=== PATIENT | male | born 1950 | race Caucasian/White ===

== ENCOUNTER 2016-08-25 11:11 | Emergency (ER) | payer OTHER ==
[2016-08-25 11:23] VITALS: O2SAT 96
[2016-08-25] MEDS ORDERED: NS 1,000 ML IV ONE ×3 (11:48→13:15)
[2016-08-25 11:49] LABS: % IMMATURE GRANULYOCYTES 0.2 % (0.0-1.1); ABSOLUTE IMMATURE GRANULOCYTES 0.02 10^3/uL (0.00-0.10); ADD DIFF? NO; ADD MORPH? NO; ADD SCAN? NO; ATYPICAL LYMPHOCYTE FLAG 20 (0-99); FRAGMENT RBC FLAG 20 (0-99); HEMATOCRIT 34.8 % (40.0-51.0); HEMOGLOBIN 11.3 g/dL (13.7-17.5); LEFT SHIFT FLG 70 (0-99); LIPEMIA HEMOLYSIS FLAG 80 (0-99); MEAN CELL HEMOGLOBIN 28.4 pg (27.9-34.1); MEAN CELL HEMOGLOBIN CONCENTR. 32.5 g/dL (32.4-36.7); MEAN CELL VOLUME 87.4 fL (81.5-99.8); MEAN PLATELET VOLUME 11.6 fL (8.7-11.7); PLATELET CLUMPS FLAG 0 (0-99); PLATELET COUNT 189 10^3/uL (150-400); RED BLOOD CELL COUNT 3.98 10^6/uL (4.40-6.38); RED CELL DISTRIBUTION WIDTH 16.8 % (11.5-15.2)
[2016-08-25 12:06] LABS: ALBUMIN 4.4 g/dL (3.5-5.0); BILIRUBIN,TOTAL 0.7 mg/dL (0.1-1.4); BILIRUBIN-CONJUGATED 0.4 mg/dL (0.0-0.5); BILIRUBIN-UNCONJUGATED 0.3 mg/dL (0.0-1.1); CALCIUM 8.1 mg/dL (8.5-10.4); CREATININE 5.1 mg/dL (0.7-1.3); POTASSIUM 5.7 mEq/L (3.5-5.2); TOTAL PROTEIN 7.7 g/dL (6.3-8.2)
--- NOTE | 2016-08-25 12:31 | EDPHY ---
H & P Chief Complaint Nursing Narrative: abd pain cramping x 3 days and dehydrated. Hx of rectal ca Time Seen by Provider: 08/25/16 11:31 - Medical/Surgical History Hx Asthma: No Hx Chronic Respiratory Disease: No Hx Diabetes: Yes Hx Cardiac Disease: Yes Hx Renal Disease: No Hx Cirrhosis: No Hx Alcoholism: No Hx HIV/AIDS: No Hx Splenectomy or Spleen Trauma: No Other PMH: PCP Raquel cross med. dxd 2011 rectal ca. Colostomy / colon resection . DM /HTN Chol/Neuropathy. FLU . Tetanus ??? - Social History Smoking Status: Light smoker Constitutional: Initial Vital Signs Temperature (C) 36.7 C 08/25/16 11:15 Heart Rate 60 08/25/16 11:15 Respiratory Rate 16 08/25/16 11:15 Blood Pressure 111/48 L 08/25/16 11:15 O2 Sat (%) 96 08/25/16 11:15 O2 Delivery Mode Room Air Allergies/Adverse Reactions: hydrocodone bitartrate [From Vicodin] Allergy (Verified 08/25/16 11:22) latex Allergy (Verified 08/25/16 11:22) Home Medications: Medication Instructions Recorded Atorvastatin Calcium [Lipitor 40 40 mg PO HS 01/28/15 mg (*)] Losartan Potassium [Cozaar 50 mg 50 mg PO DAILY 01/28/15 (*)] Metformin HCl [Metformin 1000 mg] 1,000 mg PO BID 01/28/15 Morphine Sulfate [Morphine Sulfate 30 mg PO BID 01/28/15 ER] Venlafaxine HCl [Effexor] 200 mg PO DAILY 01/28/15 amLODIPine BESYLATE [Norvasc 10 mg 10 mg PO DAILY #30 tab 02/03/15 (*)] GABAPENTIN 08/25/16 Insulin Regular, Human 08/25/16 Medical Decision Making - Data Points Laboratory Results: Laboratory Results 08/25/16 11:42 08/25/16 11:42 08/25/16 08/25/16 11:45 11:42 WBC 8.23 10^3/uL (3.80-9.50) RBC 3.98 L 10^6/uL (4.40-6.38) Hgb 11.3 L g/dL (13.7-17.5) Hct 34.8 L % (40.0-51.0) MCV 87.4 fL (81.5-99.8) MCH 28.4 pg (27.9-34.1) MCHC 32.5 g/dL (32.4-36.7) RDW 16.8 H % (11.5-15.2) Plt Count 189 10^3/uL (150-400) MPV 11.6 fL (8.7-11.7) Neut % (Auto) 79.8 H % (39.3-74.2) Lymph % (Auto) 9.7 L % (15.0-45.0) [place] % (Auto) 9.7 % (4.5-13.0) Eos % (Auto) 0.2 L % (0.6-7.6) Baso % (Auto) 0.4 % (0.3-1.7) Nucleat RBC Rel Count 0.0 % (0.0-0.2) Absolute Neuts (auto) 6.56 H 10^3/uL (1.70-6.50) Absolute Lymphs (auto) 0.80 L 10^3/uL (1.00-3.00) Absolute Monos (auto) 0.80 10^3/uL (0.30-0.80) Absolute Eos (auto) 0.02 L 10^3/uL (0.03-0.40) Absolute Basos (auto) 0.03 10^3/uL (0.02-0.10) Absolute Nucleated RBC 0.00 10^3/uL (0-0.01) Immature Gran % 0.2 % (0.0-1.1) Immature Gran # 0.02 10^3/uL (0.00-0.10) PT 13.8 SEC (12.0-15.0) INR 1.08 (0.83-1.16) APTT 29.9 SEC (23.0-38.0) VBG Lactic Acid 2.3 H mmol/L (0.7-2.1) Sodium 136 mEq/L (134-144) Potassium 5.7 H mEq/L (3.5-5.2) Chloride 96 L mEq/L (97-110) Carbon Dioxide 20 L mEq/l (22-31) Anion Gap 20 mEq/L (8-16) BUN 84 H mg/dL (7-23) Creatinine 5.1 H mg/dL (0.7-1.3) Estimated GFR 11 Glucose 86 mg/dL (70-100) Calcium 8.1 L mg/dL (8.5-10.4) Total Bilirubin 0.7 mg/dL (0.1-1.4) Conjugated Bilirubin 0.4 mg/dL (0.0-0.5) Unconjugated Bilirubin 0.3 mg/dL (0.0-1.1) AST 24 IU/L (17-59) ALT 21 IU/L (21-72) Alkaline Phosphatase 66 IU/L (38-126) Total Protein 7.7 g/dL (6.3-8.2) Albumin 4.4 g/dL (3.5-5.0) Lipase 36.0 IU/L (23-300) Medications Given: Discontinued Medications Sodium Chloride (Ns) 1,000 mls @ 0 mls/hr IV ONCE ONE PRN Reason: Wide Open Stop: 08/25/16 11:49 Last Admin: 08/25/16 11:48 Dose: 1,000 mls Sodium Chloride (Ns) 1,000 mls @ 0 mls/hr IV ONCE ONE PRN Reason: Wide Open Stop: 08/25/16 13:16 Last Admin: 08/25/16 13:15 Dose: 1,000 mls Departure - Departure Disposition: Acute Care Hospital [facility] Clinical Impression: SBO (small bowel obstruction), Renal failure, Hyperkalemia Condition: Fair Referrals: IN STATE,. [Primary Care Provider] - As per Instructions
[2016-08-25 12:39] LABS: APTT 29.9 SEC (23.0-38.0); INR 1.08 (0.83-1.16); PROTIME(PATIENT) 13.8 SEC (12.0-15.0)
--- NOTE | 2016-08-25 13:20 | CT ---
CT Abdomen and Pelvis Without IV Contrast History: Abdominal pain and cramping and vomiting for 3 days. Dehydrated. Renal failure. History of r ectal cancer in 2011 status post partial colon resection and colostomy. Comparison: CT angiogram abdomen from January 2015. Technique: 5 mm helical images were obtained of the abdomen and pelvis from the level of the diaphrag ms through the symphysis pubis. This was done without intravenous contrast with the patient's renal f ailure. Multiplanar reformation was performed. Radiation dose reduction technique was utilized. Findings: Abdomen: Lung bases are clear. No focal liver lesion. Spleen is unremarkable. Both adrenal glands nicholas ear mildly thickened over the interval. Minimal hydronephrosis is seen in either kidney. Nonobstructi ve calculus is seen inferiorly in the left kidney. Probable renal cortical cysts are seen on the left . Pancreas is atrophic with calcifications suggesting chronic pancreatitis. No evidence for aneurysma l dilatation of the abdominal aorta where there is evidence of atherosclerotic disease. There are mul tiple dilated loops of small bowel with air-fluid levels. Pelvis: Diverticulosis is seen in the descending colon. Colostomy is seen at the left lower quadrant. Circumferential wall thickening is seen in the rectum. Soft tissue mass is seen anterior to the sacr um measuring 9 cm in width x 4.2 cm anterior to posterior. Both distal ureters are near the anterior margin of this presacral mass and the presacral mass extends to the posterior aspect of the bladder. No evidence for aggressive bone lesion. Degenerative disk and degenerative joint disease is seen in t he lower lumbar spine. Degenerative change is seen in both hips. Impression: 1. Distal partial small bowel obstruction. 2. Presacral soft tissue mass probably representing metastatic disease from the patient's history giv en of rectal cancer. Circumferential wall thickening in the rectum. Postsurgical changes of partial c olon resection and colostomy. Diverticulosis. 3. Thickening of both adrenal glands suggesting hyperplasia. 4. Chronic pancreatitis. 5. Other chronic findings as above. Results called to Clayton Mendez PA-C.
--- NOTE | 2016-08-25 15:26 | UCPHY ---
H & P Patient Type: New Chief Complaint Nursing Narrative: abd pain cramping x 3 days and dehydrated. Hx of rectal ca Time Seen by Provider: 08/25/16 11:31 HPI/ROS: Chief complaint: Abdominal pain History of present illness: This is a 66-year-old male with a history of insulin-dependent diabetes and rectal cancer with a diverting colostomy who presents to the clinic for evaluation of abdominal pain. Patient reports the onset of symptoms approximately 3 days ago. He describes a cramping pain. He has had associated nausea and vomiting. He also reports a decrease in urine output. He denies precipitating factors. He denies alleviating factors. He denies other associated signs or symptoms including no fevers. Review of systems: A 10 point review of systems was obtained and other than described above was negative - Medical/Surgical History Hx Asthma: No Hx Chronic Respiratory Disease: No Hx Diabetes: Yes Hx Cardiac Disease: Yes Hx Renal Disease: No Hx Cirrhosis: No Hx Alcoholism: No Hx HIV/AIDS: No Hx Splenectomy or Spleen Trauma: No Other PMH: PCP Raquel cross med. dxd 2011 rectal ca. Colostomy / colon resection . DM /HTN Chol/Neuropathy. FLU . Tetanus ??? - Family History Significant Family History: Other - Social History Smoking Status: Light smoker - Physical Exam Exam: General Appearance: Alert, unwell appearing. Eyes: Pupils equal and round no pallor or injection. ENT, Mouth: Mucous membranes moist. Respiratory: There are no retractions, lungs are clear to auscultation. Cardiovascular: Regular rate and rhythm. Gastrointestinal: Bowel sounds diminished. Abdomen is mildly distended. No apparent tenderness. Neurological: Alert and oriented. Strength and sensation intact and symmetrical. Skin: Warm and dry, no rashes. Musculoskeletal: Neck is supple non tender. Extremities are symmetrical, full range of motion. Psychiatric: Patient is oriented X 3, there is no agitation. Constitutional: Initial Vital Signs Temperature (C) 36.7 C 08/25/16 11:15 Heart Rate 60 08/25/16 11:15 Respiratory Rate 16 08/25/16 11:15 Blood Pressure 111/48 L 08/25/16 11:15 O2 Sat (%) 96 08/25/16 11:15 O2 Delivery Mode Room Air Allergies/Adverse Reactions: hydrocodone bitartrate [From Vicodin] Allergy (Verified 08/25/16 11:22) latex Allergy (Verified 08/25/16 11:22) Home Medications: Medication Instructions Recorded Atorvastatin Calcium [Lipitor 40 40 mg PO HS 01/28/15 mg (*)] Losartan Potassium [Cozaar 50 mg 50 mg PO DAILY 01/28/15 (*)] Metformin HCl [Metformin 1000 mg] 1,000 mg PO BID 01/28/15 Morphine Sulfate [Morphine Sulfate 30 mg PO BID 01/28/15 ER] Venlafaxine HCl [Effexor] 200 mg PO DAILY 01/28/15 amLODIPine BESYLATE [Norvasc 10 mg 10 mg PO DAILY #30 tab 02/03/15 (*)] GABAPENTIN 08/25/16 Insulin Regular, Human 08/25/16 Medical Decision Making - Diagnostics Imaging: CT scan of the abdomen and pelvis without contrast reveals a partial small- bowel obstruction and a presacral mass, please see report for complete details ED Course/Re-evaluation: Patient is discussed with my secondary supervising physician Dr. Med Barron. Patient presents to the clinic for evaluation of abdominal pain. He is unwell appearing. He is afebrile and vital signs are stable. Evaluation reveals a partial small bowel obstruction and presacral mass. Further patient appears to be in renal failure with electrolyte disturbances, most noteworthy an elevated potassium. There are no dynamic changes seen on EKG. Patient is IV hydrated. He will be admitted to the hospital. Family and patient request to go to [facility]. I have contacted [facility] and Dr. Liam Peters has kindly agreed to accept this patient in transfer for admission. EMTALA forms are filled out. Patient will be transferred by ALS ambulance. Differential Diagnosis: Included but not limited to colitis, gastritis, gastroenteritis, biliary tract disease, pancreatitis, bowel obstruction, urinary tract disease - Data Points Laboratory Results: Laboratory Results 08/25/16 11:42 08/25/16 11:42 08/25/16 08/25/16 11:45 11:42 WBC 8.23 10^3/uL (3.80-9.50) RBC 3.98 L 10^6/uL (4.40-6.38) Hgb 11.3 L g/dL (13.7-17.5) Hct 34.8 L % (40.0-51.0) MCV 87.4 fL (81.5-99.8) MCH 28.4 pg (27.9-34.1) MCHC 32.5 g/dL (32.4-36.7) RDW 16.8 H % (11.5-15.2) Plt Count 189 10^3/uL (150-400) MPV 11.6 fL (8.7-11.7) Neut % (Auto) 79.8 H % (39.3-74.2) Lymph % (Auto) 9.7 L % (15.0-45.0) [place] % (Auto) 9.7 % (4.5-13.0) Eos % (Auto) 0.2 L % (0.6-7.6) Baso % (Auto) 0.4 % (0.3-1.7) Nucleat RBC Rel Count 0.0 % (0.0-0.2) Absolute Neuts (auto) 6.56 H 10^3/uL (1.70-6.50) Absolute Lymphs (auto) 0.80 L 10^3/uL (1.00-3.00) Absolute Monos (auto) 0.80 10^3/uL (0.30-0.80) Absolute Eos (auto) 0.02 L 10^3/uL (0.03-0.40) Absolute Basos (auto) 0.03 10^3/uL (0.02-0.10) Absolute Nucleated RBC 0.00 10^3/uL (0-0.01) Immature Gran % 0.2 % (0.0-1.1) Immature Gran # 0.02 10^3/uL (0.00-0.10) PT 13.8 SEC (12.0-15.0) INR 1.08 (0.83-1.16) APTT 29.9 SEC (23.0-38.0) VBG Lactic Acid 2.3 H mmol/L (0.7-2.1) Sodium 136 mEq/L (134-144) Potassium 5.7 H mEq/L (3.5-5.2) Chloride 96 L mEq/L (97-110) Carbon Dioxide 20 L mEq/l (22-31) Anion Gap 20 mEq/L (8-16) BUN 84 H mg/dL (7-23) Creatinine 5.1 H mg/dL (0.7-1.3) Estimated GFR 11 Glucose 86 mg/dL (70-100) Calcium 8.1 L mg/dL (8.5-10.4) Total Bilirubin 0.7 mg/dL (0.1-1.4) Conjugated Bilirubin 0.4 mg/dL (0.0-0.5) Unconjugated Bilirubin 0.3 mg/dL (0.0-1.1) AST 24 IU/L (17-59) ALT 21 IU/L (21-72) Alkaline Phosphatase 66 IU/L (38-126) Total Protein 7.7 g/dL (6.3-8.2) Albumin 4.4 g/dL (3.5-5.0) Lipase 36.0 IU/L (23-300) Medications Given: Discontinued Medications Sodium Chloride (Ns) 1,000 mls @ 0 mls/hr IV ONCE ONE PRN Reason: Wide Open Stop: 08/25/16 11:49 Last Admin: 08/25/16 11:48 Dose: 1,000 mls Sodium Chloride (Ns) 1,000 mls @ 0 mls/hr IV ONCE ONE PRN Reason: Wide Open Stop: 08/25/16 13:16 Last Admin: 08/25/16 13:15 Dose: 1,000 mls Departure - Departure Disposition: Acute Care Hospital [facility] Clinical Impression: SBO (small bowel obstruction), Renal failure, Hyperkalemia Condition: Fair Referrals: IN STATE,. [Primary Care Provider] - As per Instructions - PQRS PQRS Measurement: N/A
[2016-08-25 23:01] VITALS: BP 104/51; PULSE 55; RESP 20; TEMP 98.4
== END 2016-08-25 15:10 | disposition short-term general hospital (02) ==
LOC: CED 11:11
DX: K56.69 Other intestinal obstruction (principal); N17.9 Acute kidney failure, unspecified; R11.2 Nausea with vomiting, unspecified; E87.5 Hyperkalemia; R93.3 Abnormal findings on diagnostic imaging of other parts of digestive tract; E27.9 Disorder of adrenal gland, unspecified; K86.1 Other chronic pancreatitis; Z85.048 Personal history of other malignant neoplasm of rectum, rectosigmoid junction, and anus; E11.40 Type 2 diabetes mellitus with diabetic neuropathy, unspecified; I10 Essential (primary) hypertension; F17.200 Nicotine dependence, unspecified, uncomplicated; Z93.3 Colostomy status
CPT/HCPCS: 74176; 96360; 96361; G0463; 80048-PO; 80076-PO; 83605-PO; 83690-PO; 85025-PO; 85610-PO; 85730-PO

== ENCOUNTER 2017-12-02 19:33 | Emergency (ER) | payer OTHER ==
[2017-12-02] MEDS ORDERED: HYDROmorphONE/DILAUDID 2 MG/ML INJ IM ONE (20:12)
--- NOTE | 2017-12-02 20:19 | EDPHY ---
H & P Time Seen by Provider: 12/02/17 19:34 HPI/ROS: 67-year-old male here for bilateral foot neuropathy pain. He has a history of diabetic foot neuropathy. He has been on morphine for approximately 4 years and is changing doctors and ran out of his morphine yesterday. He states he has been looking for a replacement doctor but has been unable to find one. He does state he feels very anxious. No fevers or chills. Review of systems General no fever no chills no weakness HEENT no eye pain no eye discharge. No eye redness, no sore throat Respiratory no cough, no shortness of breath Cardiac no chest pain, no peripheral edema GI no abdominal pain, no diarrhea, no constipation, no nausea, no vomiting no flank pain, no hematuria, no dysuria Musculoskeletal no myalgias, no joint pain Heme no easy bruising, no easy bleeding Endo no polyuria, no polydipsia Skin no rashes, no pruritus Neuro no syncope, no dizziness, no headaches Psych is no suicidal ideation, no homicidal ideation Past Medical/Surgical History: Rectal cancer with diverting colostomy Insulin-dependent diabetes Hypertension Diabetic neuropathy Social History: Denies alcohol or drug use Smoking Status: Current every day smoker Physical Exam: 67-year-old male alert and oriented in no acute distress Nontoxic appearance, afebrile Atraumatic normocephalic Neck no JVD Lungs clear to auscultation Heart regular rate and rhythm Abdomen nondistended bowel sounds present Extremities no cyanosis clubbing or edema Constitutional: Initial Vital Signs Temperature (C) 37 C 12/02/17 19:58 Heart Rate 55 L 12/02/17 19:58 Respiratory Rate 16 12/02/17 19:58 Blood Pressure 162/90 H 12/02/17 19:58 O2 Sat (%) 95 12/02/17 19:58 O2 Delivery Mode Room Air Allergies/Adverse Reactions: hydrocodone bitartrate [From Vicodin] Allergy (Verified 12/02/17 19:56) latex Allergy (Verified 12/02/17 19:56) Home Medications: Medication Instructions Recorded Atorvastatin Calcium [Lipitor 40 40 mg PO HS 01/28/15 mg (*)] Losartan Potassium [Cozaar 50 mg 50 mg PO DAILY 01/28/15 (*)] Metformin HCl [Metformin 1000 mg] 1,000 mg PO BID 01/28/15 Morphine Sulfate [Morphine Sulfate 30 mg PO BID 01/28/15 ER] Insulin Regular, Human 08/25/16 traMADol [Ultram 50 mg (*)] 50 mg PO Q6 #16 tab 12/02/17 Medical Decision Making ED Course/Re-evaluation: Patient here for bilateral foot neuropathic pain with recent discontinuation of his morphine of 4 years duration. After long discussion with the patient I told him that I would only be able to offer him very short term relief of his pain that he is going to need to have a discussion with his primary care doctor who was prescribing his morphine to get a referral and/or a taper of that morphine if he is no longer going to be offered that medication. I explained that the Emergency Dept is not the place for prescription of assisted narcotics. Another option which he has been seeking is finding a new primary care physician. Imp bilateral foot pain, diabetic neuropathy recent discontinuation of morphine, with the beginning of mild opiate withdrawal Plan Hydromoprhone 1 mg IM RX Tramadol #16 Ondansetron take home pack Lorazepam take home pack Differential Diagnosis: Differential diagnosis considered but not limited to: Opiate withdrawal, bilateral foot neuropathy - Data Points Medications Given: Discontinued Medications Hydromorphone HCl (Dilaudid) 1 mg IM EDNOW ONE Stop: 12/02/17 20:13 Last Admin: 12/02/17 20:26 Dose: 1 mg Lorazepam (Ativan 1 Mg Prepack#4) 1 btl TAKEHOME EDNOW ONE Stop: 12/02/17 20:49 Last Admin: 12/02/17 20:56 Dose: 1 btl Ondansetron HCl (Zofran Odt) 4 mg PO EDNOW ONE Stop: 12/02/17 20:29 Last Admin: 12/02/17 20:31 Dose: 4 mg Ondansetron HCl (Zofran Odt 4 Mg Prepack#2) 1 btl TAKEHOME EDNOW ONE Stop: 12/02/17 20:50 Last Admin: 12/02/17 20:57 Dose: 1 btl Oxycodone/Acetaminophen (Percocet 5/325mg Prepack#4) 1 btl TAKEHOME EDNOW ONE Stop: 12/02/17 21:16 Last Admin: 12/02/17 21:23 Dose: Not Given Departure - Departure Disposition: Home, Routine, Self-Care Clinical Impression: Bilateral foot pain Condition: Good Instructions: Diabetic Peripheral Neuropathy (ED), Opioid Withdrawal (ED) Referrals: NONE *PRIMARY CARE P,. [Primary Care Provider] - As per Instructions Prescriptions: traMADol [Ultram 50 mg (*)] 50 mg PO Q6 #16 tab
[2017-12-02] MEDS ORDERED: ONDANSETRON DISINTEGRATING 4 MG TAB PO ONE (20:28)
[2017-12-02] MEDS ORDERED: LORAZEPAM 1 MG PREPACK#4 BTL TAKEHOME ONE (20:48)
[2017-12-02] MEDS ORDERED: ONDANSETRON 4MG PREPACK#2 BTL TAKEHOME ONE (20:49)
[2017-12-02] MEDS ORDERED: OXYCODONE/APAP 5/325MG PREPACK#4 BTL TAKEHOME ONE (21:13)
[2017-12-02] MEDS: OXYCODONE/APAP 5/325MG PREPACK#4 BTL TAKEHOME ONE ×2 (21:16→21:23)
[2017-12-02 21:19] VITALS: BP 129/95
== END 2017-12-02 21:17 | disposition home or self-care (01) ==
LOC: CED 19:33
DX: M79.671 Pain in right foot (principal); M79.672 Pain in left foot; I10 Essential (primary) hypertension; E11.9 Type 2 diabetes mellitus without complications; F17.200 Nicotine dependence, unspecified, uncomplicated; Z79.4 Long term (current) use of insulin; Z85.048 Personal history of other malignant neoplasm of rectum, rectosigmoid junction, and anus; Z91.040 Latex allergy status
CPT/HCPCS: 96372; 99284; J1170

== ENCOUNTER 2017-12-06 22:11 | Emergency (ER) | payer OTHER ==
--- NOTE | 2017-12-06 22:20 | EDPHY ---
H & P Time Seen by Provider: 12/06/17 22:20 HPI/ROS: HPI CHIEF COMPLAINT: Leg pain HISTORY OF PRESENT ILLNESS: Patient is a 67-year-old male, history of chronic pain with chronic peripheral neuropathy, history of insulin-dependent diabetes and hypertension rectal cancer, typically has been on morphine 30 mg extended relief for years. However had a change in his doctor and is unable to get his morphine filled. He did see his new primary care doctor today who referred him to pain management. He also was told that his pain increases to go the emergency room. He was recently seen here in the emergency room on 12/02 or approximately 4 days ago and given a Dilaudid IM shot and patient had a long discussion with the physician at that time about pain management and then emergency room do not give out a lot of narcotics. Here in the emergency room the patient is resting comfortably has no acute distress. He is complaining of chronic peripheral neuropathy and chronic pain is requesting pain medicine. I had a long discussion with him that I will be willing to give him 1 IM shot of pain medicine. And a very limited supply of Percocet take-home pack 5 pills. Until he can follow up with his primary care doctor/pain management. He understands emergency rooms do not prescribe large amounts of narcotics. He is comfortable this plan. Past Medical History: History of insulin-dependent diabetes, peripheral neuropathy, hypertension, rectal cancer Past Surgical History: Rectal cancer with diverting colostomy Social History: Denies daily use of drugs alcohol tobacco. Family History: Noncontributory ROS REVIEW OF SYSTEMS: A comprehensive 10 point review of systems is otherwise negative aside from elements mentioned in the history of present illness. Exam Constitutional elderly, nontoxic, triage nursing summary reviewed, vital signs reviewed, awake/alert. Eyes normal conjunctivae and sclera, EOMI, PERRLA. HENT normal inspection, atraumatic, moist mucus membranes, no epistaxis, neck supple/ no meningismus, no raccoon eyes. Respiratory clear to auscultation bilaterally, normal breath sounds, no respiratory distress, no wheezing. Cardiovascular rate normal, regular rhythm, no murmur, no edema, distal pulses normal. Gastrointestinal soft, non-tender, no rebound, no guarding, normal bowel sounds, no distension, no pulsatile mass. Genitourinary no CVA tenderness. Musculoskeletal bilateral lower extremity: Good Pulses. Neuropathy present. no midline vertebral tenderness, full range of motion, no calf swelling, no tenderness of extremities, no meningismus, good pulses, neurovascularly intact. Skin pink, warm, & dry, no rash, skin atraumatic. Neurologic awake, alert and oriented x 3, AAOx3, moves all 4 extremities equally, motor intact, sensory intact, CN II-XII intact, normal cerebellar, normal vision, normal speech. Psychiatric normal mood/affect. Heme/Lymph/Immune no lymphadenopathy. Differential Diagnosis: Includes but is not limited to in a particular order chronic pain, need for opioids, opiate withdrawal, peripheral neuropathy Medical Decision Making: Here in emergency room the patient appears, cooperative. No acute distress. No evidence of opiate withdrawal. 1 mg IM Dilaudid will be given to the patient. Limited supply of Percocet take-home pack. Recommend following back up with his primary care doctor/pain management. He understands and is comfortable this plan. Source: Patient - Medical/Surgical History Hx Asthma: No Hx Chronic Respiratory Disease: No Hx Diabetes: Yes Hx Cardiac Disease: No Hx Renal Disease: No Hx Cirrhosis: No Hx Alcoholism: No Hx HIV/AIDS: No Hx Splenectomy or Spleen Trauma: No Other PMH: dxd 2011 rectal ca,colon cancer. Colostomy / colon resection . DM / HTN Chol/Neuropathy,depression. Tetanus ??? - Social History Smoking Status: Current every day smoker Constitutional: Initial Vital Signs Temperature (C) 36.8 C 12/06/17 22:20 Heart Rate 59 L 12/06/17 22:20 Respiratory Rate 16 12/06/17 22:20 Blood Pressure 133/78 H 12/06/17 22:20 O2 Sat (%) 96 12/06/17 22:20 O2 Delivery Mode Room Air Allergies/Adverse Reactions: hydrocodone bitartrate [From Vicodin] Allergy (Verified 12/06/17 22:19) latex Allergy (Verified 12/06/17 22:19) Home Medications: Medication Instructions Recorded Atorvastatin Calcium [Lipitor 40 40 mg PO HS 01/28/15 mg (*)] Losartan Potassium [Cozaar 50 mg 50 mg PO DAILY 01/28/15 (*)] Metformin HCl [Metformin 1000 mg] 1,000 mg PO BID 01/28/15 Morphine Sulfate [Morphine Sulfate 30 mg PO BID 01/28/15 ER] Insulin Regular, Human 08/25/16 traMADol [Ultram 50 mg (*)] 50 mg PO Q6 #16 tab 12/02/17 Departure - Departure Disposition: Home, Routine, Self-Care Clinical Impression: Neuropathy Condition: Good Instructions: Peripheral Neuropathy (ED) Additional Instructions: 1. Follow up with your primary care doctor. 2. Follow up with your pain management doctor.
[2017-12-06] MEDS ORDERED: HYDROmorphONE/DILAUDID 2 MG/ML INJ IM ONE (22:28)
[2017-12-06] MEDS ORDERED: OXYCODONE/APAP 5/325MG PREPACK#4 BTL TAKEHOME ONE (22:29)
[2017-12-06 22:44] VITALS: BP 133/78
== END 2017-12-06 22:51 | disposition home or self-care (01) ==
LOC: CED 22:11
DX: G62.9 Polyneuropathy, unspecified (principal); E11.9 Type 2 diabetes mellitus without complications; I10 Essential (primary) hypertension; F17.200 Nicotine dependence, unspecified, uncomplicated; Z79.4 Long term (current) use of insulin; Z85.038 Personal history of other malignant neoplasm of large intestine; Z85.048 Personal history of other malignant neoplasm of rectum, rectosigmoid junction, and anus; Z91.040 Latex allergy status
CPT/HCPCS: 96372; 99284; J1170

== ENCOUNTER 2017-12-10 22:49 | Emergency (ER) | payer OTHER ==
[2017-12-10 23:03] VITALS: BP 177/93
--- NOTE | 2017-12-10 23:38 | EDPHY ---
H & P Time Seen by Provider: 12/10/17 22:52 HPI/ROS: CC: chronic bilateral foot pain HPI: This 67-year-old male with an extensive past medical history including colon cancer, diabetes, hypertension, the atrial fibrillation, chronic kidney disease, subarachnoid hemorrhage due to hypertensive emergency, posterior reversible encephalopathic syndrome, renal artery stenosis and peripheral neuropathy presents to the emergency department [facility] complaining of chronic bilateral foot pain. He has been to the emergency department for this on November as well as December 06, 2017 due to the fact that he had to change primary care providers and ran out of his morphine. He saw his new primary care provider, Dr. Christopher Springer, on Monday (two days ago) and was given a consult to a [facility] in [place]. His appointment is this Monday (in two days). However, he states he did not receive any pain medication from his primary care provider at this initial visit and did not ask for any. He states the pain is 8/10. It is not different from his chronic pain. It is a burning and stinging sensation. The morphine 30 mg extended relief usually helps the pain. He does not have any other complaints this evening. REVIEW OF SYSTEMS: Constitutional: No fever, no chills. Eyes: No discharge. ENT: No sore throat. Respiratory: No cough, no shortness of breath. Cardiac: No chest pain, no palpitations. Gastrointestinal: No abdominal pain, no vomiting. +Colostomy. Genitourinary: No hematuria. Musculoskeletal: No back pain. Skin: No rashes. Neurological: No headache. 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 PSH: Colon resection with diverting colostomy. FH: Noncontributory The patient states he has no known drug allergies. When asked about the hydrocodone allergies listed he said he had a "mild reaction" once. Medications: The patient is not sure what he is on but he believes his blood pressure medication is losartan and amlodipine. He is on insulin and states he is still on metformin and aspirin. Primary care provider is now Dr. Christopher Cross in [place]. He has a referral to the [facility] in [place]. Social History: The patient states he smokes 4 cigarettes per day. No other tobacco products. No alcohol products. No marijuana products. He is here with his son this evening. Smoking Status: Heavy smoker Physical Exam: General Appearance: Alert, mild distress. Appears older than stated age. Eyes: Pupils equal and round no pallor or injection. ENT, Mouth: Mucous membranes are moist. Respiratory: There are no retractions, lungs are clear to auscultation. Cardiovascular: Regular rate and rhythm. No murmurs, gallops, or rubs. Gastrointestinal: Abdomen is soft and nontender, no masses, bowel sounds normal. +Colostomy. Neurological: Awake and alert, Motor exams grossly normal. Skin: Warm and dry, scant excoriation to bilateral lower legs. No diabetic foot wounds noted. Musculoskeletal: Neck is supple nontender. No JVD. No back pain. Dorsalis pedis and posterior tibial pulses faintly palpable and confirmed by doppler. No calf pain, warmth, cords or erythema. No edema. Psychiatric: Patient is oriented X 3, there is no agitation. DIFFERENTIAL DIAGNOSIS: After history and physical exam differential diagnosis was considered for but not limited to: Chronic pain, peripheral neuropathy, electrolyte abnormality, vascular occlusion unlikely. Constitutional: Initial Vital Signs Temperature (C) 98.8 F 12/10/17 23:00 Heart Rate 62 12/10/17 23:00 Respiratory Rate 16 12/10/17 23:00 Blood Pressure 177/93 H 12/10/17 23:00 O2 Sat (%) 96 12/10/17 23:00 O2 Delivery Mode Room Air Allergies/Adverse Reactions: hydrocodone bitartrate [From Vicodin] Allergy (Unknown, Verified 12/10/17 23:08) latex Allergy (Unknown, Verified 12/10/17 23:08) Home Medications: Medication Instructions Recorded Atorvastatin Calcium [Lipitor 40 40 mg PO HS 01/28/15 mg (*)] Losartan Potassium [Cozaar 50 mg 50 mg PO DAILY 01/28/15 (*)] Metformin HCl [Metformin 1000 mg] 1,000 mg PO BID 01/28/15 Morphine Sulfate [Morphine Sulfate 30 mg PO BID 01/28/15 ER] Insulin Regular, Human 08/25/16 traMADol [Ultram 50 mg (*)] 50 mg PO Q6 #16 tab 12/02/17 Medical Decision Making ED Course/Re-evaluation: The patient was seen and examined. Prior records were reviewed. His vital signs were reviewed and showed an elevated blood pressure. This was discussed with the patient and he is to follow this up with his primary care provider this week per my recommendation. He saw his new primary care provider 2 days ago and he was given a pain management consult which is scheduled for 2 days from now. He was also given orders to have routine labs performed and he states he is going to do this tomorrow. He declines any laboratory tests this evening. The patient is pleasant and cooperative. I did discuss with him his recent 2 ER visits for pain management and that we cannot treat his chronic pain with narcotic pain medications here in the future. 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 He is comfortable with this plan and understands that we will not be able to give him narcotic pain medication for chronic pain in the future. He will return to the emergency room if he has any change in his symptoms are any further problems or concerns. He understands his discharge instructions. All of his and his son's questions were answered. They are happy with the care they received this evening. - Data Points Medications Given: Discontinued Medications Hydromorphone HCl (Dilaudid) 1 mg IM EDNOW ONE Stop: 12/10/17 23:34 Last Admin: 12/10/17 23:46 Dose: 1 mg Oxycodone/Acetaminophen (Percocet 5/325) 1 tab PO EDNOW ONE Stop: 12/10/17 23:34 Last Admin: 12/10/17 23:48 Dose: 1 tab Oxycodone/Acetaminophen (Percocet 5/325mg Prepack#4) 1 btl TAKEHOME EDNOW ONE Stop: 12/10/17 23:34 Last Admin: 12/10/17 23:47 Dose: 1 btl Departure - Departure Disposition: Home, Routine, Self-Care Clinical Impression: Bilateral foot pain Condition: Good Instructions: Oxycodone/Acetaminophen (By mouth), Chronic Pain (ED), Chronic Hypertension (ED), Peripheral Neuropathy (ED) Additional Instructions: Your blood pressure is elevated. Have your blood pressure rechecked with your primary care provider soon (this week) and discuss your medication regimen to see if you need to have an increase in your medications. You could also call your doctor tomorrow and tell them than your blood pressure in the ER tonight was 177/93 and get further instruction. Make sure you have the blood tests drawn tomorrow that your new primary care doctor ordered two days ago. Use the take home pack of Percocet only as needed so you have enough to last until your appointment on Monday (in two days). Follow up with the pain management clinic on Monday as scheduled. Make sure you write down all your questions prior to your appointment and are comfortable with the plan. Remember, we cannot provide narcotic pain medication for chronic pain in the future, but please return to the ER if you have any change in your condition, other problems or concerns. Referrals: Patient,NotPresent [Primary Care Provider] - As per Instructions Christopher Cross [Unknown] - As per Instructions
[2017-12-10] MEDS: HYDROmorphONE/DILAUDID 2 MG/ML INJ IM ONE (23:46)
[2017-12-10] MEDS: OXYCODONE/APAP 5/325MG PREPACK#4 BTL TAKEHOME ONE (23:47)
[2017-12-10] MEDS: OXYCODONE/APAP 5/325 TAB PO ONE (23:48)
== END 2017-12-10 23:58 | disposition home or self-care (01) ==
LOC: CED 22:49
DX: M79.671 Pain in right foot (principal); M79.672 Pain in left foot; E11.9 Type 2 diabetes mellitus without complications; F17.200 Nicotine dependence, unspecified, uncomplicated; I12.9 Hypertensive chronic kidney disease with stage 1 through stage 4 chronic kidney disease, or unspecified chronic kidney disease; N18.9 Chronic kidney disease, unspecified; Z79.4 Long term (current) use of insulin; Z85.038 Personal history of other malignant neoplasm of large intestine; Z91.040 Latex allergy status
CPT/HCPCS: 96372; 99284; J1170